=== PATIENT | female | born 1995 | race Two or more races ===

== ENCOUNTER 2018-03-02 00:30 | Inpatient (IN) | payer OTHER ==
[2018-03-02 00:58] LABS: ADD MAN DIFF? NO
[2018-03-02] MEDS ORDERED: BUTORPHANOL 2 MG INJ IV (01:00)
[2018-03-02] MEDS ORDERED: IBUPROFEN 600 MG TAB PO (01:00)
[2018-03-02] MEDS ORDERED: OXYTOCIN 30 UNITS/LR 500 ML IV (01:00)
[2018-03-02] MEDS ORDERED: BUTORPHANOL 1 MG INJ IV (01:00)
[2018-03-02] MEDS ORDERED: METHYLERGONOVINE 0.2 MG INJ IM (01:00)
[2018-03-02] MEDS ORDERED: CARBOPROST 250 MCG INJ IM (01:00)
[2018-03-02] MEDS ORDERED: MISOPROSTOL 200 MCG TAB PR (01:00)
[2018-03-02] MEDS ORDERED: LIDOCAINE 1% (MPF) 30 ML INJ INJ (01:00)
[2018-03-02 01:05] LABS: BASOPHILS % 0.2 % (0.0-2.0); EOSINOPHILS % 0.1 % (0.0-7.0); HEMATOCRIT 32.4 % (37.0-47.0); HEMOGLOBIN 10.1 g/dl (12.0-16.0); LYMPHOCYTES # 1.6 10^3/ul (0.8-2.9); LYMPHOCYTES % 9.5 % (15.0-51.0); MEAN CORPUSCULAR HEMOGLOBIN 23.2 pg (29.0-33.0); MEAN CORPUSCULAR HGB CONC 31.2 g/dl (32.0-37.0); MEAN CORPUSCULAR VOLUME 74.3 fl (82.0-101.0); MEAN PLATELET VOLUME 11.1 fl (7.4-10.4); MONOCYTE # 0.7 10^3/ul (0.3-0.9); MONOCYTES % 3.8 % (0.0-11.0); NEUTROPHIL # 14.8 10^3/ul (1.6-7.5); NEUTROPHILS % 85.9 % (39.0-77.0); PLATELET COUNT 357 10^3/UL (140-415); RED BLOOD COUNT 4.36 10^6/ul (4.20-5.40); RED CELL DISTRIBUTION WIDTH 16.8 % (11.5-14.5)
[2018-03-02 01:05] LABS: WHITE BLOOD COUNT 17.2 10^3/ul (4.8-10.8)
[2018-03-02] MEDS: LACTATED RINGER'S 1,000 ML IV ×3 (01:14→05:52)
[2018-03-02 01:25] LABS: INR 0.87; PROTIME 11.9 Sec (11.9-14.9); PT RATIO 0.9
[2018-03-02 01:26] LABS: PARTIAL THROMBOPLASTIN TIME 23.7 Sec (25.0-35.0)
[2018-03-02 02:00] LABS: HEPATITIS B SURFACE ANTIGEN NEGATIVE (NEGATIVE)
[2018-03-02] MEDS ORDERED: FENTAnyl 2MCG/ML-ROPIV 0.2% 100 ML (02:10)
[2018-03-02] MEDS ORDERED: ONDANSETRON 4 MG INJ (05:54)
[2018-03-02] MEDS ORDERED: NALOXONE (0.4 MG/ML) INJ IV (06:00)
[2018-03-02] MEDS ORDERED: DIPHENHYDRAMINE 50 MG INJ IV (06:00)
[2018-03-02] MEDS: ONDANSETRON 4 MG INJ IV (06:29)
[2018-03-02] MEDS: FENTAnyl 2MCG/ML-ROPIV 0.2% 100 ML BAG EPI (06:29)
[2018-03-02] MEDS: OXYTOCIN 30 UNITS/LR 500 ML IV ×3 (06:49→10:49)
[2018-03-02] MEDS ORDERED: ACETAMINOPHEN 325 MG TAB PO (10:00)
[2018-03-02] MEDS ORDERED: OXYCODONE/ASPIRIN (4.88/325) TAB PO ×2 (10:00)
[2018-03-02] MEDS ORDERED: BENZOCAINE 20% 56 ML SPRAY TOP (10:00)
[2018-03-02] MEDS: SENNA/DOCUSATE NA (8.6MG/50MG) TAB PO ×2 (10:00→21:06)
[2018-03-02] MEDS ORDERED: ONDANSETRON 4 MG INJ IV (10:00)
[2018-03-02] MEDS ORDERED: HYDROCODONE/APAP (5/325) TAB PO ×2 (10:00)
[2018-03-02] MEDS ORDERED: DIBUCAINE 1% 30 GM OINT TOP (10:00)
[2018-03-02] MEDS: WITCH HAZEL/GLYCERIN PAD PR (10:49)
[2018-03-02] MEDS: LANOLIN 7 GM TUBE TOP (10:50)
[2018-03-02] MEDS: IBUPROFEN 600 MG TAB PO ×3 (13:19→23:31)
[2018-03-02 15:36] LABS: RAPID PLASMA REAGIN NONREACTIVE (NR)
[2018-03-03] MEDS: IBUPROFEN 600 MG TAB PO ×3 (06:26→18:00)
[2018-03-03 08:08] LABS: ADD MAN DIFF? NO
[2018-03-03 08:33] LABS: WHITE BLOOD COUNT 20.2 10^3/ul (4.8-10.8)
[2018-03-03 08:33] LABS: BASOPHIL # 0.1 10^3/ul (0.0-0.1); BASOPHILS % 0.3 % (0.0-2.0); EOSINOPHILS # 0.2 10^3/ul (0.0-0.5); HEMOGLOBIN 8.8 g/dl (12.0-16.0); LYMPHOCYTES # 3.6 10^3/ul (0.8-2.9); LYMPHOCYTES % 17.9 % (15.0-51.0); MEAN CORPUSCULAR HEMOGLOBIN 23.5 pg (29.0-33.0); MEAN CORPUSCULAR HGB CONC 31.4 g/dl (32.0-37.0); MEAN CORPUSCULAR VOLUME 74.7 fl (82.0-101.0); MEAN PLATELET VOLUME 11.2 fl (7.4-10.4); MONOCYTE # 1.3 10^3/ul (0.3-0.9); MONOCYTES % 6.4 % (0.0-11.0); NEUTROPHIL # 14.9 10^3/ul (1.6-7.5); NEUTROPHILS % 73.7 % (39.0-77.0); PLATELET COUNT 294 10^3/UL (140-415); RED BLOOD COUNT 3.75 10^6/ul (4.20-5.40); RED CELL DISTRIBUTION WIDTH 17.2 % (11.5-14.5)
[2018-03-03] MEDS: SENNA/DOCUSATE NA (8.6MG/50MG) TAB PO ×2 (11:51→21:17)
[2018-03-04] MEDS: IBUPROFEN 600 MG TAB PO ×3 (00:07→12:35)
[2018-03-04 08:12] LABS: ADD MAN DIFF? NO
[2018-03-04 08:15] LABS: BASOPHIL # 0.1 10^3/ul (0.0-0.1); BASOPHILS % 0.5 % (0.0-2.0); EOSINOPHILS # 0.2 10^3/ul (0.0-0.5); EOSINOPHILS % 1.3 % (0.0-7.0); HEMATOCRIT 29.5 % (37.0-47.0); HEMOGLOBIN 8.9 g/dl (12.0-16.0); LYMPHOCYTES # 3.2 10^3/ul (0.8-2.9); LYMPHOCYTES % 21.5 % (15.0-51.0); MEAN CORPUSCULAR HEMOGLOBIN 22.8 pg (29.0-33.0); MEAN CORPUSCULAR HGB CONC 30.2 g/dl (32.0-37.0); MEAN CORPUSCULAR VOLUME 75.4 fl (82.0-101.0); MEAN PLATELET VOLUME 11.1 fl (7.4-10.4); MONOCYTES % 6.8 % (0.0-11.0); NEUTROPHIL # 10.2 10^3/ul (1.6-7.5); NEUTROPHILS % 69.2 % (39.0-77.0); PLATELET COUNT 312 10^3/UL (140-415); RED BLOOD COUNT 3.91 10^6/ul (4.20-5.40); RED CELL DISTRIBUTION WIDTH 17.5 % (11.5-14.5)
[2018-03-04 08:15] LABS: WHITE BLOOD COUNT 14.7 10^3/ul (4.8-10.8)
[2018-03-04] MEDS: SENNA/DOCUSATE NA (8.6MG/50MG) TAB PO (10:02)
[2018-03-06] MEDS ORDERED: MEASLES,MUMPS,RUBELLA VACCINE INJ SC* (09:00)
== END 2018-03-04 16:45 | disposition home or self-care (01) | DRG 775 ==
LOC: OBT 00:30 → L-D 00:30 → OBT 00:40 → L-D 00:40 → PP1 09:28
PROVIDERS: Obstetrics & Gynecology
PROC: 10E0XZZ Delivery of Products of Conception, External Approach (ICD-10-PCS; principal; 2018-03-02)
PROC: 0HQ9XZZ Repair Perineum Skin, External Approach (ICD-10-PCS; 2018-03-02)
PROC: 4A1HXCZ Monitoring of Products of Conception, Cardiac Rate, External Approach (ICD-10-PCS; 2018-03-02)
DX: O48.0 Post-term pregnancy (principal); O99.13 Other diseases of the blood and blood-forming organs and certain disorders involving the immune mechanism complicating the puerperium; Z3A.40 40 weeks gestation of pregnancy; Z37.0 Single live birth; O70.0 First degree perineal laceration during delivery; O69.81X0 Labor and delivery complicated by cord around neck, without compression, not applicable or unspecified; D72.829 Elevated white blood cell count, unspecified
CPT/HCPCS: 62319; 85025; 85610; 85730; 86592; 86850; 86900; 86901; 87086; 87340